=== PATIENT | female | born 1965 | race Caucasian/White ===

== ENCOUNTER → 2024-01-11 17:43 | Outpatient (REF) | payer OTHER, SELFPAY | LOC: WDC 17:43 | PROVIDERS: ATTENDING PHYSICIAN Physician Assistant Medical | DX: Z12.31 Encounter for screening mammogram for malignant neoplasm of breast (principal) | CPT/HCPCS: 77063; 77067 ==

== ENCOUNTER → 2025-01-16 16:19 | Outpatient (REF) | payer OTHER, SELFPAY | LOC: WDC 16:19 | PROVIDERS: ATTENDING PHYSICIAN Physician Assistant Medical | DX: Z12.31 Encounter for screening mammogram for malignant neoplasm of breast (principal) | CPT/HCPCS: 77063; 77067 ==